=== PATIENT | male | born 1930 | race Caucasian/White ===

== ENCOUNTER → 2017-09-11 | Outpatient (CLI) | payer OTHER ==
[~2017-09-11] VITALS: Ht 172.7 cm; Wt 105.7 kg
[~2017-09-11] MED LIST: ASPIR 8181 MG PO; CRESTOR20 MG PO; KEFLEX500 M1 PO; LEVOXYL50 MCG PO; TOPROL XL25 MG PO
--- NOTE | ~2017-09-11 | P ---
[facility] [place] [address] PROCEDURE REPORT Name: ANGELESFADUMO Alesha Room #: [facility]#: [id number] Admission: Attend Phys: Cayetano Dickinson MD Discharge: Date of : 32 Report #: [id number] THIS REPORT FOR: //name// CC: Cayetano Gill MD DATE OF SERVICE: 09/11/2017 BRIEF HISTORY: The patient is an 87-year-old male with several months of solid food dysphagia associated with 20-pound weight loss. He can only tolerate a tomato soup and Ensure. He denies typical reflux symptoms. PREOPERATIVE DIAGNOSIS: Solid food dysphagia associated weight loss. POSTOPERATIVE DIAGNOSIS: Partially obstructing mass, distal esophagus. MEDICATIONS: Deep sedation with propofol per anesthesia. SPECIMEN: Biopsies of distal esophageal mass. ESTIMATED BLOOD LOSS: 5 mL. PROCEDURE: EGD with biopsy. FINDINGS: Prior to propofol sedation, procedure of upper endoscopy was discussed with the patient as well as potential risks and its complications. He indicates he understands and desires to proceed. DESCRIPTION OF PROCEDURE: With the patient in the left lateral decubitus position, the Etubicsi video endoscope was inserted in the cervical esophagus under direct vision without difficulty. Examination of this organ through its entire length revealed normal esophageal mucosa in the proximal and mid esophagus. However, as we advanced the scope distally, there was a partially obstructing mass partially filled in the lumen of distal esophagus. It measured about 5 cm in length. I was able to advance the scope very carefully around the mass. It was not completely obstructing, but I would say about 50% of lumen was filled with a mass. The mass was ulcerated and very friable and just rubbing the scope caused oozing of blood. We were able to advance the scope into the stomach, which was examined on end view as well as retroflexed views. No ulcers or erosions were seen. On retroflexion, I could not see the mass lesion. Examination of the distal stomach revealed normal mucosa. Pylorus is unremarkable. Duodenal bulb and postbulbar duodenal sweep were inspected and noted to be unremarkable. At that point, the scope was slowly withdrawn and careful circumferential views obtained. Upon withdrawal of the scope, we obtained multiple biopsies from the mass lesion in the distal esophagus. The [address] [address] PROCEDURE REPORT Name: ANGELESFADUMO Alesha Room #: [facility] Yenny#: [id number] Admission: Attend Phys: Cayetano Dickinson MD Discharge: Date of : 32 Report #: [id number] scope was withdrawn and the patient tolerated the procedure well. CONDITION OF THE PATIENT UPON DISCHARGE: Following procedure, the patient was drowsy and arousable. He will be discharged home when fully ambulatory. 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 Dilation was not completed today as it felt not to be safe to do so. We will discuss further with Dr. Lawrence Gill, but he will need further evaluation including a CT of the chest as well as endoscopic ultrasound for staging and potentially surgery and radiation therapy. We will follow up on biopsies and make further recommendations to the patient. <ELECTRONICALLY SIGNED> By: Cayetano Dickinson MD 09/11/17 1709 [id number] Cayetano Dickinson MD /nt
== END | disposition home or self-care (01) ==
LOC: GI 07:00
DX: K22.10 Ulcer of esophagus without bleeding (principal); Z87.891 Personal history of nicotine dependence; E78.00 Pure hypercholesterolemia, unspecified; Z95.5 Presence of coronary angioplasty implant and graft; Z98.890 Other specified postprocedural states; E03.9 Hypothyroidism, unspecified; M19.90 Unspecified osteoarthritis, unspecified site; Z90.5 Acquired absence of kidney; Z90.49 Acquired absence of other specified parts of digestive tract
CPT/HCPCS: 62110; 62900